=== PATIENT | female | born 1965 | race Caucasian/White ===

== ENCOUNTER 2017-04-29 22:49 | Emergency (ER) | payer OTHER ==
[2017-04-29 22:57] VITALS: BP 208/127; PULSE 120; TEMP 97.4; BMI 27.3
--- NOTE | 2017-04-29 23:13 | PDOC ---
History of Present Illness - General Chief Complaint: Rash Stated Complaint: RASH ON BACK X 2 WEEKS Time Seen by Provider: 04/29/17 23:07 - History of Present Illness Initial Comments: 04/30/17 00:11 healthy 52y female presents with worsening pruritic rash on back no fever/ chills/ rhinorrhean/v no arthralgias no prior similar no meds + sick contact-- has same rash no cp/sob/ headache admit to anxiety about ED visit pmh: denies fhx: noncontrib ros: reviewed and otherwise negative GENERAL: [The patient is awake, alert, and fully oriented, and in no apparent distress.] HEAD: [Normal with no signs of trauma.] EYES: [Pupils equal, round and reactive to light, extraocular movements intact, sclera anicteric, conjunctiva are normal.] ENT: [TMs normal, nares patent, oropharynx clear without exudates. Moist mucous membranes.] NECK: [Normal range of motion, supple without lymphadenopathy, JVD, or masses.] LUNGS: [Breath sounds equal, clear to auscultation bilaterally. No wheezes, and no crackles.] HEART: [Regular rate and rhythm, normal S1 and S2 without murmur, rub or gallop.] ABDOMEN: [Soft, nontender, normoactive bowel sounds. No guarding, no rebound. No masses appreciated.] EXTREMITIES: [Normal range of motion, no edema. No clubbing or cyanosis. No cords, erythema, or tenderness.] NEUROLOGICAL: [Cranial nerves II through XII grossly intact. Normal speech, normal gait.] PSYCH: [Anxious] SKIN: [Multiple annular lesions on back interspersed with papules and plaques. erythematous. some scale] a/p ? ringworn. trial of antifungals. Derm fu will be arranged by patient. Asymptomatic htn likely due to white-coat induced anxiety. Will fu with PCP for recheck Past History - Past Medical History Allergies/Adverse Reactions: Allergies Allergy/AdvReac Type Severity Reaction Status Date / Time No Known Allergies Allergy Verified 04/29/17 22:51 Home Medications: Ambulatory Orders Clotrimazole [Lotrimin 1% Cream -] 1 applic TP BID #1 tube 04/29/17 COPD: No Other medical history: DENIES - Suicide/Smoking/Psychosocial Hx Smoking History: Current every day smoker Have you smoked in the past 12 months: Yes Number of Cigarettes Smoked Daily: 4 Information on smoking cessation initiated: Yes 'Breaking Loose' booklet given: 04/29/17 Hx Alcohol Use: Yes (DRINKING PRIOR TO COMING TO ER) Drug/Substance Use Hx: No Substance Use Type: None *Physical Exam - Vital Signs Last Vital Signs Temp Pulse Resp BP Pulse Ox 97.4 F L 120 H 18 208/127 100 04/29/17 22:52 04/29/17 22:52 04/29/17 22:52 04/29/17 22:52 04/29/17 22:52 *DC/Admit/Observation/Transfer Diagnosis at time of Disposition: Ringworm - Discharge Dispostion Disposition: HOME Condition at time of disposition: Stable - Prescriptions Prescriptions: Clotrimazole [Lotrimin 1% Cream -] 1 applic TP BID #1 tube - Referrals Referrals: Trevor Preciado MD [Primary Care Provider] - - Patient Instructions Printed Discharge Instructions: DI for Ringworm - Post Discharge Activity
== END 2017-04-29 23:22 | disposition home or self-care (01) ==
LOC: FER 22:49
DX: B35.9 Dermatophytosis, unspecified (principal); F17.210 Nicotine dependence, cigarettes, uncomplicated
CPT/HCPCS: 99281-25